=== PATIENT | male | born 1940 | race Two or more races ===

== ENCOUNTER 2023-01-29 11:00 | Inpatient (IN) | payer OTHER ==
[~2023-01-29] VITALS: Ht 160 cm; Wt 67.6 kg
[2023-01-29] MEDS ORDERED: JANUMET XR 50-1 EAC1 PO (11:56)
[2023-01-29] MEDS ORDERED: ATACAND32 MG PO (11:56)
[2023-01-29] MEDS ORDERED: CRESTOR20 MG PO (11:57)
[2023-01-31 19:30] LABS: HEMATOCRIT 27.4 % (39.0-48.0); HEMOGLOBIN 9.2 g/dL (13-16.00); MEAN CORPUSCULAR HEMOGLOBIN 27.6 pg (27.00-32.0); MEAN CORPUSCULAR HGB CONC 33.7 g/dl (32.0-36.0); PLATELET COUNT 171 K/uL (150-450); RED BLOOD COUNT 3.34 M/uL (4.00-6.00); RED CELL DISTRIBUTION WIDTH 14.7 % (11.5-14.5)
[2023-01-31 19:59] LABS: CALCIUM 8.4 mg/dL (8.5-10.1); CREATININE SERUM 1.25 mg/dL (0.70-1.30); GFR 55.3; MAGNESIUM 1.5 mg/dL (1.8-2.4); PHOSPHOROUS 3.5 mg/dL (2.5-4.9); POTASSIUM 4.46 mEq/L (3.5-5.1)
[2023-02-01 06:57] LABS: HEMATOCRIT 25.3 % (39.0-48.0); MEAN CELL VOLUME 80.8 fL (80.0-100.00); MEAN CORPUSCULAR HGB CONC 34.4 g/dl (32.0-36.0); PLATELET COUNT 156 K/uL (150-450); RED BLOOD COUNT 3.13 M/uL (4.00-6.00); RED CELL DISTRIBUTION WIDTH 14.7 % (11.5-14.5)
[2023-02-01 07:09] LABS: HEMOGLOBIN 8.7 g/dL (13-16.00); MEAN CORPUSCULAR HEMOGLOBIN 27.7 pg (27.00-32.0)
[2023-02-01 07:21] LABS: ALBUMIN 2.7 gm/dL (3.4-5.0); CALCIUM 8.1 mg/dL (8.5-10.1); CREATININE SERUM 1.02 mg/dL (0.70-1.30); GFR 69.92; MAGNESIUM 1.5 mg/dL (1.8-2.4); PHOSPHOROUS 3.6 mg/dL (2.5-4.9); POTASSIUM 5.13 mEq/L (3.5-5.1)
[2023-02-02 08:50] LABS: CALCIUM 8.1 mg/dL (8.5-10.1); CREATININE SERUM 1.06 mg/dL (0.70-1.30); GFR 66.88; MAGNESIUM 1.5 mg/dL (1.8-2.4); POTASSIUM 4.32 mEq/L (3.5-5.1)
[2023-02-02 09:10] LABS: PHOSPHOROUS 1.7 mg/dL (2.5-4.9)
[2023-02-02 09:58] LABS: HEMATOCRIT 26.7 % (39.0-48.0); MEAN CELL VOLUME 82.5 fL (80.0-100.00); MEAN CORPUSCULAR HEMOGLOBIN 26.8 pg (27.00-32.0); MEAN CORPUSCULAR HGB CONC 32.5 g/dl (32.0-36.0); PLATELET COUNT 165 K/uL (150-450); RED BLOOD COUNT 3.24 M/uL (4.00-6.00); RED CELL DISTRIBUTION WIDTH 14.7 % (11.5-14.5)
[2023-02-02 09:59] LABS: HEMOGLOBIN 8.7 g/dL (13-16.00)
[2023-02-04 06:35] LABS: HEMATOCRIT 39.7 % (39.0-48.0); MEAN CELL VOLUME 81.1 fL (80.0-100.00); MEAN CORPUSCULAR HEMOGLOBIN 27.7 pg (27.00-32.0); MEAN CORPUSCULAR HGB CONC 34.2 g/dl (32.0-36.0); PLATELET COUNT 256 K/uL (150-450); RED CELL DISTRIBUTION WIDTH 15.1 % (11.5-14.5)
[2023-02-04 06:54] LABS: HEMOGLOBIN 13.6 g/dL (13-16.00)
[2023-02-05 07:39] LABS: HEMATOCRIT 37.2 % (39.0-48.0); HEMOGLOBIN 12.5 g/dL (13-16.00); MEAN CELL VOLUME 80.9 fL (80.0-100.00); MEAN CORPUSCULAR HEMOGLOBIN 27.2 pg (27.00-32.0); MEAN CORPUSCULAR HGB CONC 33.5 g/dl (32.0-36.0); PLATELET COUNT 247 K/uL (150-450); RED CELL DISTRIBUTION WIDTH 15.3 % (11.5-14.5)
[2023-02-05 08:01] LABS: CALCIUM 8.7 mg/dL (8.5-10.1); CREATININE SERUM 1.56 mg/dL (0.70-1.30); GFR 42.82; MAGNESIUM 1.8 mg/dL (1.8-2.4); PHOSPHOROUS 2.9 mg/dL (2.5-4.9); POTASSIUM 3.98 mEq/L (3.5-5.1)
[2023-02-05] MEDS ORDERED: HYOSCYAMINE0.125 M1 SL (08:18)
[2023-02-05] MEDS ORDERED: TRAM1TAB98 PO (08:20)
[2023-02-05] MEDS ORDERED: PEPCID AC20 MG PO (08:21)
== END 2023-02-05 10:15 | disposition home or self-care (01) | DRG 330 ==
LOC: O/R 01-31 09:13 → SURG 01-31 10:45 → SURH 01-31 17:58
PROVIDERS: Internal Medicine Geriatric Medicine; ADMIT Surgery; ATTEND Surgery
PROC: 0DTL4ZZ Resection of Transverse Colon, Percutaneous Endoscopic Approach (ICD-10-PCS; 2023-01-31)
PROC: 0DTM4ZZ Resection of Descending Colon, Percutaneous Endoscopic Approach (ICD-10-PCS; 2023-01-31)
PROC: 0DB84ZZ Excision of Small Intestine, Percutaneous Endoscopic Approach (ICD-10-PCS; 2023-01-31)
PROC: 07BB4ZZ Excision of Mesenteric Lymphatic, Percutaneous Endoscopic Approach (ICD-10-PCS; 2023-01-31)
PROC: 0FT44ZZ Resection of Gallbladder, Percutaneous Endoscopic Approach (ICD-10-PCS; 2023-01-31)
PROC: 0DTK4ZZ Resection of Ascending Colon, Percutaneous Endoscopic Approach (ICD-10-PCS; principal; 2023-01-31 10:45)
PROC: 30233N1 Transfusion of Nonautologous Red Blood Cells into Peripheral Vein, Percutaneous Approach (ICD-10-PCS; 2023-02-02)
DX: C18.2 Malignant neoplasm of ascending colon (principal); C18.3 Malignant neoplasm of hepatic flexure; N99.72 Accidental puncture and laceration of a genitourinary system organ or structure during other procedure; D49.0 Neoplasm of unspecified behavior of digestive system; K66.0 Peritoneal adhesions (postprocedural) (postinfection); R59.0 Localized enlarged lymph nodes; E11.9 Type 2 diabetes mellitus without complications; D64.89 Other specified anemias; I11.9 Hypertensive heart disease without heart failure; R19.7 Diarrhea, unspecified; T80.89XA Other complications following infusion, transfusion and therapeutic injection, initial encounter; Y65.8 Other specified misadventures during surgical and medical care